=== PATIENT | female | born 1960 | race Caucasian/White ===

== ENCOUNTER 2017-06-22 12:19 | Inpatient (IN) | payer OTHER ==
[2017-06-22 13:52] LABS: BILIRUBIN,URINE NEGATIVE (NEG); COLOR,URINE YELLOW; GLUCOSE,URINE NEGATIVE (NEG); NITRITE,URINE NEGATIVE (NEG); PROTEIN,URINE 30 mg/dL (NEG-TRACE); UROBILINOGEN,URINE 0.2 mg/dL (0.2 mg/dL)
[2017-06-22 13:56] LABS: CLARITY,URINE HAZY
[2017-06-22] MEDS: IV NORMAL SALINE 1000ML BAG 1,000 ML IV ×2 (13:56→15:05)
[2017-06-22] MEDS: ONDANSETRON PF 4 MG/2 ML VIAL. IV (13:59)
[2017-06-22 14:01] LABS: BACTERIA,URINE MANY /HPF (0-FEW); WBC,URINE 20-40 /HPF (0-4)
[2017-06-22] MEDS: fentaNYL PF VIAL 100 MCG/2 ML VIAL IV ×2 (14:01→14:56)
[2017-06-22 14:02] LABS: SQUAMOUS EPITHELIAL CELL,UR MANY /LPF; YEAST,URINE PRESENT /HPF
[2017-06-22 14:04] LABS: BASO % 0 % (0-3); EOS # 1.1 x10^3/uL (0.0-0.7); EOS % 6 % (0-3); HEMATOCRIT 37.4 % (36.0-47.0); HEMOGLOBIN 11.8 g/dL (12.0-15.5); LYMPH # 3.8 x10^3/uL (1.0-4.8); LYMPH % 21 % (24-48); MEAN CORPUSCULAR HEMOGLOBIN 30 pg (25-35); MEAN CORPUSCULAR HGB CONC 32 g/dL (31-37); MEAN CORPUSCULAR VOLUME 94 fL (79-100); MONO # 1.1 x10^3/uL (0.0-1.1); MONO % 6 % (0-9); NEUT # 11.8 x10^3uL (1.8-7.7); NEUT % 66 % (31-73); PLATELET COUNT 880 x10^3/uL (140-400); RED BLOOD COUNT 3.97 x10^6/uL (3.50-5.40); RED CELL DISTRIBUTION WIDTH 16.5 % (11.5-14.5); WHITE BLOOD COUNT 17.8 x10^3/uL (4.0-11.0)
[2017-06-22 14:06] LABS: ADD MAN DIFF? YES
[2017-06-22 14:09] LABS: INR 1.2 (0.8-1.1)
[2017-06-22 14:10] LABS: PARTIAL THROMBOPLASTIN TIME 32 SEC (24-38)
[2017-06-22 14:19] LABS: LACTIC ACID 3.9 mmol/L (0.4-2.0)
[2017-06-22 14:21] LABS: ALBUMIN 2.7 g/dL (3.4-5.0); ALBUMIN/GLOBULIN RATIO 0.5 (1.0-1.7); ALK PHOS 218 U/L (46-116); ALT (SGPT) 32 U/L (14-59); ANION GAP 20 (6-14); AST (SGOT) 29 U/L (15-37); BLOOD UREA NITROGEN 41 mg/dL (7-20); BUN/CREATININE RATIO 14 (6-20); CALCIUM 10.1 mg/dL (8.5-10.1); CARBON DIOXIDE 15 mmol/L (21-32); CHLORIDE 98 mmol/L (98-107); CREATINE KINASE 22 U/L (26-192); CREATININE 2.9 mg/dL (0.6-1.0); GFR 16.8; GLUCOSE 190 mg/dL (70-99); LIPASE 366 U/L (73-393); MAGNESIUM 1.9 mg/dL (1.8-2.4); SODIUM 133 mmol/L (136-145); TOTAL BILIRUBIN 0.3 mg/dL (0.2-1.0); TOTAL PROTEIN 8.4 g/dL (6.4-8.2)
[2017-06-22 14:22] LABS: TROPONINI < 0.017 ng/mL (0.000-0.055)
[2017-06-22 14:22] LABS: % EOS 11 % (0-5); % LYMPHS 23 % (24-48); % METAS 1 % (0-0); % MONOS 5 % (0-10); % MYELOS 1 % (0-0); % SEGS 59 % (35-66)
[2017-06-22 14:23] LABS: PLT ESTIMATE INCREASED (ADEQUATE)
[2017-06-22 14:24] LABS: POLYCHROMASIA SLIGHT
[2017-06-22 14:26] LABS: POTASSIUM 6.1 mmol/L (3.5-5.1)
[2017-06-22 14:26] LABS: NT-PRO BNP 446 pg/mL (0-124)
[2017-06-22 14:28] LABS: THYROID STIM HORMONE (TSH) 7.013 uIU/mL (0.358-3.74)
[2017-06-22] MEDS ORDERED: ONDANSETRON PF 4 MG/2 ML VIAL. IV ×2 (14:30→15:00)
[2017-06-22] MEDS ORDERED: ACETAMINOPHEN 500 MG TABLET PO (14:45)
[2017-06-22] MEDS ORDERED: ACETAMINOPHEN 325 MG TABLET. PO (14:45)
[2017-06-22] MEDS ORDERED: VANCOMYCIN PER PHARMACY MC (14:45)
[2017-06-22] MEDS: PIP/TAZO PER PHARMACY MC (14:45)
[2017-06-22] MEDS ORDERED: 0.9 % SOD CHL for STERILE FIELD 10 ML DISP.SYRIN. (15:00)
[2017-06-22] MEDS ORDERED: TEMAZEPAM 7.5 MG CAPSULE PO (15:00)
[2017-06-22] MEDS ORDERED: ALBUTEROL SULFATE 2.5 MG/3 ML NEBU. NEB (15:15)
[2017-06-22 15:18] LABS: FREE T4 0.71 ng/dL (0.76-1.46)
[2017-06-22] MEDS: ALBUTEROL SULFATE 2.5 MG/3 ML NEBU. NEB (15:23)
[2017-06-22] MEDS: PIPERACILLIN/TAZOBACTAM 3.375 GM in IV NORMAL SALINE 100ML 100 ML IV (15:27)
[2017-06-22] MEDS: NOREPINEPHRIN PREMIX 250 ML IV ×2 (15:38→22:56)
[2017-06-22] MEDS: DEXTROSE 50% 25 GM / 50ML DISP.SYRIN. IV ×2 (15:39→16:00)
[2017-06-22] MEDS: SODIUM POLYSTYRENE SULFONATE 15 GM/60 ML ORAL.SUSP. PO (15:45)
[2017-06-22] MEDS: INSULIN REGULAR 100 UNIT/ML 10ML VIAL. IV ×2 (15:47→16:00)
[2017-06-22] MEDS: CALCIUM GLUCONATE 100 MG/ML VIAL for DOSE IN MG. IV (15:48)
[2017-06-22] MEDS: CALCIUM GLUCONATE 1,000 MG/10 ML VIAL. IVP (16:00)
[2017-06-22] MEDS: HEPARIN PF for SUB-Q USE 5,000 UNIT/0.5 ML VIAL. SQ ×2 (16:00→20:50)
[2017-06-22] MEDS: VANCOMYCIN 1.75 GM in IV DEXTROSE 5 %-0.45 % NACL 500 ML IV (16:04)
[2017-06-22] MEDS: IV RINGERS,LACTATED 1000ML 1,000 ML IV (16:19)
[2017-06-22 16:42] LABS: TROPONINI < 0.017 ng/mL (0.000-0.055)
[2017-06-22 16:43] LABS: LACTIC ACID 2.9 mmol/L (0.4-2.0)
[2017-06-22] MEDS: IPRATRPIUM/ALBUTEROL 0.5/2.5MG 3 ML NEBU. NEB ×2 (17:08→20:06)
[2017-06-22] MEDS: cefTRIAXone IV Push 1 GM VIAL. IVP (18:36)
[2017-06-22] MEDS: BUDESONIDE 0.5 MG/2 ML NEBU. NEB (20:06)
[2017-06-22] MEDS: CHOLESTYRAMINE/ASPARTAME 4 GM PACKET PO (20:47)
[2017-06-22] MEDS: HYDROcodone/APAP 5/325MG 1 TAB TABLET PO (20:47)
[2017-06-22] MEDS: QUEtiapine 100 MG TABLET. PO (20:48)
[2017-06-22] MEDS: DIPHENOXYLATE/ATROPINE TABLET. PO (20:48)
[2017-06-22] MEDS: SUCRALFATE 1 GM TABLET. PO (20:48)
[2017-06-22] MEDS: VENLAFAXINE 50 MG TABLET. PO (20:48)
[2017-06-22 20:59] LABS: POTASSIUM 4.4 mmol/L (3.5-5.1)
[2017-06-22] MEDS ORDERED: clonazePAM 1 MG TABLET PO (21:00)
[2017-06-22 21:05] LABS: TROPONINI < 0.017 ng/mL (0.000-0.055)
[2017-06-22 22:30] LABS: POC GLUCOSE 209 mg/dL (70-99)
[2017-06-23] MEDS: IV NORMAL SALINE 1000ML BAG 1,000 ML IV ×4 (01:00→17:30)
[2017-06-23 05:17] LABS: MRSA BY PCR Negative (Negative)
[2017-06-23] MEDS: HEPARIN PF for SUB-Q USE 5,000 UNIT/0.5 ML VIAL. SQ ×3 (05:58→20:38)
[2017-06-23 06:06] LABS: ADD MAN DIFF? NO
[2017-06-23 06:21] LABS: ANION GAP 12 (6-14); BLOOD UREA NITROGEN 27 mg/dL (7-20); CALCIUM 8.2 mg/dL (8.5-10.1); CARBON DIOXIDE 19 mmol/L (21-32); CHLORIDE 111 mmol/L (98-107); CREATININE 1.9 mg/dL (0.6-1.0); GFR 27.4; GLUCOSE 187 mg/dL (70-99); POTASSIUM 4.4 mmol/L (3.5-5.1); SODIUM 142 mmol/L (136-145)
[2017-06-23 06:28] LABS: BASO # 0.1 x10^3/uL (0.0-0.2); BASO % 1 % (0-3); EOS # 1.7 x10^3/uL (0.0-0.7); EOS % 10 % (0-3); HEMATOCRIT 31.2 % (36.0-47.0); HEMOGLOBIN 9.7 g/dL (12.0-15.5); LYMPH # 3.8 x10^3/uL (1.0-4.8); LYMPH % 23 % (24-48); MEAN CORPUSCULAR HEMOGLOBIN 30 pg (25-35); MEAN CORPUSCULAR HGB CONC 31 g/dL (31-37); MEAN CORPUSCULAR VOLUME 94 fL (79-100); MONO # 1.5 x10^3/uL (0.0-1.1); MONO % 9 % (0-9); NEUT # 9.1 x10^3uL (1.8-7.7); NEUT % 56 % (31-73); PLATELET COUNT 696 x10^3/uL (140-400); RED BLOOD COUNT 3.31 x10^6/uL (3.50-5.40); RED CELL DISTRIBUTION WIDTH 16.7 % (11.5-14.5); WHITE BLOOD COUNT 16.2 x10^3/uL (4.0-11.0)
[2017-06-23] MEDS: SUCRALFATE 1 GM TABLET. PO ×4 (08:05→20:36)
[2017-06-23] MEDS: ASPIRIN ENTERIC COATED 81 MG TABLET.DR. PO (08:05)
[2017-06-23] MEDS: CLOPIDOGREL BISULFATE 75 MG TABLET PO (08:05)
[2017-06-23] MEDS: ATORVASTATIN CALCIUM 40 MG TABLET. PO (08:05)
[2017-06-23] MEDS: VENLAFAXINE 50 MG TABLET. PO ×3 (08:05→20:36)
[2017-06-23] MEDS: PREGABALIN 75 MG CAPSULE PO (08:06)
[2017-06-23] MEDS: HYDROcodone/APAP 5/325MG 1 TAB TABLET PO ×3 (08:06→20:36)
[2017-06-23] MEDS: DIPHENOXYLATE/ATROPINE TABLET. PO ×2 (08:06→20:36)
[2017-06-23] MEDS: BUDESONIDE 0.5 MG/2 ML NEBU. NEB ×2 (08:17→19:49)
[2017-06-23] MEDS: IPRATRPIUM/ALBUTEROL 0.5/2.5MG 3 ML NEBU. NEB ×4 (08:17→19:49)
[2017-06-23] MEDS ORDERED: amLODIPine BESYLATE 10 MG TABLET PO (09:00)
[2017-06-23] MEDS ORDERED: LISINOPRIL 20 MG TABLET PO (09:00)
[2017-06-23] MEDS: CHOLESTYRAMINE/ASPARTAME 4 GM PACKET PO ×3 (09:25→20:35)
[2017-06-23] MEDS: NOREPINEPHRIN PREMIX 250 ML IV (09:38)
[2017-06-23] MEDS: clonazePAM 1 MG TABLET PO ×2 (11:38→18:23)
[2017-06-23 11:49] LABS: POC GLUCOSE 292 mg/dL (70-99)
[2017-06-23] MEDS ORDERED: DEXTROSE 50% 25 GM / 50ML DISP.SYRIN. IV (12:30)
[2017-06-23] MEDS: PIPERACILLIN/TAZOBACTAM 2.25 GM in IV NORMAL SALINE 50ML 50 ML IV ×2 (13:32→17:30)
[2017-06-23] MEDS: CLOTRIMAZOLE/BETAMETH 1%-0.05% TOPICAL CREAM 15GM TUBE. TP (14:00)
[2017-06-23] MEDS: INSULIN ASPART 300 UNITS/3 ML INSULN.PEN SQ (17:31)
[2017-06-23 17:35] LABS: POC GLUCOSE 177 mg/dL (70-99)
[2017-06-23] MEDS: QUEtiapine 100 MG TABLET. PO (20:36)
[2017-06-23] MEDS: LACTOBACILLUS RHAMNOSUS GG 1 CAPSULE. PO (20:37)
[2017-06-23 20:46] LABS: POC GLUCOSE 191 mg/dL (70-99)
[2017-06-24] MEDS: PIPERACILLIN/TAZOBACTAM 2.25 GM in IV NORMAL SALINE 50ML 50 ML IV ×4 (00:35→17:03)
[2017-06-24] MEDS: NOREPINEPHRIN PREMIX 250 ML IV (00:35)
[2017-06-24 04:13] LABS: ADD MAN DIFF? NO
[2017-06-24 04:16] LABS: BASO % 0 % (0-3); EOS # 1.4 x10^3/uL (0.0-0.7); EOS % 14 % (0-3); HEMATOCRIT 26.3 % (36.0-47.0); HEMOGLOBIN 8.6 g/dL (12.0-15.5); LYMPH # 3.5 x10^3/uL (1.0-4.8); LYMPH % 34 % (24-48); MEAN CORPUSCULAR HEMOGLOBIN 31 pg (25-35); MEAN CORPUSCULAR HGB CONC 33 g/dL (31-37); MEAN CORPUSCULAR VOLUME 95 fL (79-100); MONO # 0.7 x10^3/uL (0.0-1.1); MONO % 7 % (0-9); NEUT # 4.5 x10^3uL (1.8-7.7); NEUT % 45 % (31-73); PLATELET COUNT 553 x10^3/uL (140-400); RED BLOOD COUNT 2.77 x10^6/uL (3.50-5.40); RED CELL DISTRIBUTION WIDTH 16.9 % (11.5-14.5); WHITE BLOOD COUNT 10.2 x10^3/uL (4.0-11.0)
[2017-06-24 04:29] LABS: ANION GAP 9 (6-14); BLOOD UREA NITROGEN 16 mg/dL (7-20); CALCIUM 7.7 mg/dL (8.5-10.1); CARBON DIOXIDE 21 mmol/L (21-32); CHLORIDE 115 mmol/L (98-107); CREATININE 1.2 mg/dL (0.6-1.0); GFR 46.6; GLUCOSE 175 mg/dL (70-99); POTASSIUM 4.1 mmol/L (3.5-5.1); SODIUM 145 mmol/L (136-145)
[2017-06-24] MEDS: IV NORMAL SALINE 1000ML BAG 1,000 ML IV ×3 (04:36→19:39)
[2017-06-24] MEDS: HEPARIN PF for SUB-Q USE 5,000 UNIT/0.5 ML VIAL. SQ ×3 (04:37→22:57)
[2017-06-24] MEDS: SUCRALFATE 1 GM TABLET. PO ×4 (07:59→22:04)
[2017-06-24] MEDS: ASPIRIN ENTERIC COATED 81 MG TABLET.DR. PO (08:00)
[2017-06-24] MEDS: IPRATRPIUM/ALBUTEROL 0.5/2.5MG 3 ML NEBU. NEB ×4 (08:00→19:43)
[2017-06-24] MEDS: CLOPIDOGREL BISULFATE 75 MG TABLET PO (08:00)
[2017-06-24] MEDS: PREGABALIN 75 MG CAPSULE PO (08:00)
[2017-06-24] MEDS: LACTOBACILLUS RHAMNOSUS GG 1 CAPSULE. PO ×2 (08:00→22:04)
[2017-06-24] MEDS: VENLAFAXINE 50 MG TABLET. PO ×3 (08:00→22:04)
[2017-06-24] MEDS: ATORVASTATIN CALCIUM 40 MG TABLET. PO (08:00)
[2017-06-24] MEDS: BUDESONIDE 0.5 MG/2 ML NEBU. NEB ×2 (08:00→19:43)
[2017-06-24] MEDS: DIPHENOXYLATE/ATROPINE TABLET. PO ×2 (08:01→22:04)
[2017-06-24] MEDS: HYDROcodone/APAP 5/325MG 1 TAB TABLET PO ×3 (08:04→19:35)
[2017-06-24] MEDS: clonazePAM 1 MG TABLET PO ×3 (08:04→22:20)
[2017-06-24] MEDS: INSULIN ASPART 300 UNITS/3 ML INSULN.PEN SQ ×3 (08:08→17:00)
[2017-06-24] MEDS: CHOLESTYRAMINE/ASPARTAME 4 GM PACKET PO ×3 (10:33→22:04)
[2017-06-24 12:22] LABS: POC GLUCOSE 111 mg/dL (70-99)
[2017-06-24] MEDS: HYDROCORTISONE SOD SUCC/PF 100 MG/2 ML VIAL. IV ×2 (15:53→22:05)
[2017-06-24] MEDS: TPN PER PHARMACY MC (16:30)
[2017-06-24 17:08] LABS: POC GLUCOSE 128 mg/dL (70-99)
[2017-06-24] MEDS: QUEtiapine 100 MG TABLET. PO (22:04)
[2017-06-24] MEDS: DEXTROSE 70% IV (22:05)
[2017-06-24] MEDS: AMINO ACIDS IV (22:05)
[2017-06-24] MEDS: [UNRECOGNIZED DRUG - OTHER] IV (22:05)
[2017-06-24] MEDS: TOTAL PARENTERAL NUTRITION IV (22:05)
[2017-06-25] MEDS: PIPERACILLIN/TAZOBACTAM 2.25 GM in IV NORMAL SALINE 50ML 50 ML IV ×2 (00:13→05:28)
[2017-06-25] MEDS: IV NORMAL SALINE 1000ML BAG 1,000 ML IV ×4 (05:26→21:52)
[2017-06-25] MEDS: HYDROCORTISONE SOD SUCC/PF 100 MG/2 ML VIAL. IV ×3 (05:27→21:55)
[2017-06-25] MEDS: HEPARIN PF for SUB-Q USE 5,000 UNIT/0.5 ML VIAL. SQ ×3 (05:27→22:06)
[2017-06-25 06:08] LABS: ANION GAP 10 (6-14); BLOOD UREA NITROGEN 18 mg/dL (7-20); CALCIUM 7.9 mg/dL (8.5-10.1); CARBON DIOXIDE 20 mmol/L (21-32); CHLORIDE 113 mmol/L (98-107); CREATININE 1.3 mg/dL (0.6-1.0); GFR 42.5; GLUCOSE 220 mg/dL (70-99); MAGNESIUM 1.1 mg/dL (1.8-2.4); PHOSPHORUS 1.7 mg/dL (2.6-4.7); POTASSIUM 4.1 mmol/L (3.5-5.1); SODIUM 143 mmol/L (136-145); TRIGLYCERIDES 144 mg/dL (0-150)
[2017-06-25] MEDS: IPRATRPIUM/ALBUTEROL 0.5/2.5MG 3 ML NEBU. NEB ×4 (08:00→19:47)
[2017-06-25] MEDS: BUDESONIDE 0.5 MG/2 ML NEBU. NEB ×2 (08:00→19:47)
[2017-06-25 08:14] LABS: POC GLUCOSE 222 mg/dL (70-99)
[2017-06-25] MEDS: SUCRALFATE 1 GM TABLET. PO ×4 (08:14→21:53)
[2017-06-25] MEDS: VENLAFAXINE 50 MG TABLET. PO ×3 (08:30→21:53)
[2017-06-25] MEDS: ASPIRIN ENTERIC COATED 81 MG TABLET.DR. PO (08:30)
[2017-06-25] MEDS: PREGABALIN 75 MG CAPSULE PO (08:31)
[2017-06-25] MEDS: CLOPIDOGREL BISULFATE 75 MG TABLET PO (08:31)
[2017-06-25] MEDS: DIPHENOXYLATE/ATROPINE TABLET. PO ×2 (08:31→21:53)
[2017-06-25] MEDS: INSULIN ASPART 300 UNITS/3 ML INSULN.PEN SQ ×3 (08:33→16:46)
[2017-06-25] MEDS: LACTOBACILLUS RHAMNOSUS GG 1 CAPSULE. PO ×2 (08:37→21:53)
[2017-06-25] MEDS: MAGNESIUM SULFATE 4GM 100 ML IV (09:30)
[2017-06-25] MEDS: MAGNESIUM OXIDE 400 MG TABLET PO (09:38)
[2017-06-25] MEDS: POTASSIUM & SODIUM PHOSPHATES PACKET. PO (09:38)
[2017-06-25] MEDS: TPN PER PHARMACY MC ×2 (10:26→11:07)
[2017-06-25] MEDS: CHOLESTYRAMINE/ASPARTAME 4 GM PACKET PO ×3 (11:33→21:55)
[2017-06-25 11:40] LABS: POC GLUCOSE 301 mg/dL (70-99)
[2017-06-25] MEDS: clonazePAM 1 MG TABLET PO ×2 (13:12→21:53)
[2017-06-25 16:29] LABS: POC GLUCOSE 204 mg/dL (70-99)
[2017-06-25 20:59] LABS: POC GLUCOSE 295 mg/dL (70-99)
[2017-06-25] MEDS: QUEtiapine 100 MG TABLET. PO (21:53)
[2017-06-25] MEDS: HYDROcodone/APAP 5/325MG 1 TAB TABLET PO (21:53)
[2017-06-25] MEDS: ATORVASTATIN CALCIUM 40 MG TABLET. PO (21:53)
[2017-06-25] MEDS: TOTAL PARENTERAL NUTRITION IV (21:57)
[2017-06-25] MEDS: [UNRECOGNIZED DRUG - OTHER] IV (21:57)
[2017-06-25] MEDS: DEXTROSE 70% IV (21:57)
[2017-06-25] MEDS: AMINO ACIDS IV (21:57)
[2017-06-25] MEDS ORDERED: AMINO ACIDS IV ×3 (22:00)
[2017-06-25] MEDS ORDERED: [UNRECOGNIZED DRUG - OTHER] IV (22:00)
[2017-06-25] MEDS ORDERED: TOTAL PARENTERAL NUTRITION IV ×3 (22:00)
[2017-06-25] MEDS ORDERED: DEXTROSE 70% IV ×3 (22:00)
[2017-06-25] MEDS ORDERED: [UNRECOGNIZED DRUG - OTHER] IV (22:00)
[2017-06-25] MEDS ORDERED: [UNRECOGNIZED DRUG - OTHER] IV (22:00)
[2017-06-26] MEDS: HYDROCORTISONE SOD SUCC/PF 100 MG/2 ML VIAL. IV ×2 (05:57→15:21)
[2017-06-26] MEDS: IV NORMAL SALINE 1000ML BAG 1,000 ML IV (05:57)
[2017-06-26] MEDS: SUCRALFATE 1 GM TABLET. PO ×3 (06:07→17:30)
[2017-06-26] MEDS: HYDROcodone/APAP 5/325MG 1 TAB TABLET PO ×2 (06:08→17:30)
[2017-06-26] MEDS: clonazePAM 1 MG TABLET PO ×2 (06:10→15:20)
[2017-06-26 06:15] LABS: ANION GAP 9 (6-14); BLOOD UREA NITROGEN 15 mg/dL (7-20); CALCIUM 7.7 mg/dL (8.5-10.1); CARBON DIOXIDE 23 mmol/L (21-32); CHLORIDE 112 mmol/L (98-107); CREATININE 0.9 mg/dL (0.6-1.0); GLUCOSE 206 mg/dL (70-99); MAGNESIUM 2.1 mg/dL (1.8-2.4); PHOSPHORUS 2.6 mg/dL (2.6-4.7); POTASSIUM 4.1 mmol/L (3.5-5.1); SODIUM 144 mmol/L (136-145)
[2017-06-26] MEDS: HEPARIN PF for SUB-Q USE 5,000 UNIT/0.5 ML VIAL. SQ ×2 (06:15→15:31)
[2017-06-26 07:23] LABS: POC GLUCOSE 184 mg/dL (70-99)
[2017-06-26] MEDS: IPRATRPIUM/ALBUTEROL 0.5/2.5MG 3 ML NEBU. NEB ×3 (08:05→15:52)
[2017-06-26] MEDS: BUDESONIDE 0.5 MG/2 ML NEBU. NEB (08:05)
[2017-06-26] MEDS: CHOLESTYRAMINE/ASPARTAME 4 GM PACKET PO ×2 (08:59→15:20)
[2017-06-26] MEDS: ASPIRIN ENTERIC COATED 81 MG TABLET.DR. PO (08:59)
[2017-06-26] MEDS: MAGNESIUM OXIDE 400 MG TABLET PO (08:59)
[2017-06-26] MEDS: LACTOBACILLUS RHAMNOSUS GG 1 CAPSULE. PO (09:00)
[2017-06-26] MEDS: DIPHENOXYLATE/ATROPINE TABLET. PO (09:00)
[2017-06-26] MEDS: CLOPIDOGREL BISULFATE 75 MG TABLET PO (09:00)
[2017-06-26] MEDS: PREGABALIN 75 MG CAPSULE PO (09:00)
[2017-06-26] MEDS: VENLAFAXINE 50 MG TABLET. PO ×2 (09:00→15:20)
[2017-06-26] MEDS: INSULIN ASPART 300 UNITS/3 ML INSULN.PEN SQ ×3 (09:08→17:33)
[2017-06-26 10:12] LABS: ADD MAN DIFF? NO
[2017-06-26 10:22] LABS: BASO # 0.2 x10^3/uL (0.0-0.2); BASO % 1 % (0-3); EOS % 0 % (0-3); HEMATOCRIT 25.9 % (36.0-47.0); HEMOGLOBIN 8.2 g/dL (12.0-15.5); LYMPH # 3.5 x10^3/uL (1.0-4.8); LYMPH % 24 % (24-48); MEAN CORPUSCULAR HEMOGLOBIN 31 pg (25-35); MEAN CORPUSCULAR HGB CONC 32 g/dL (31-37); MEAN CORPUSCULAR VOLUME 96 fL (79-100); MONO # 0.7 x10^3/uL (0.0-1.1); MONO % 5 % (0-9); NEUT # 10.1 x10^3uL (1.8-7.7); NEUT % 70 % (31-73); PLATELET COUNT 539 x10^3/uL (140-400); RED BLOOD COUNT 2.69 x10^6/uL (3.50-5.40); RED CELL DISTRIBUTION WIDTH 17.6 % (11.5-14.5); WHITE BLOOD COUNT 14.4 x10^3/uL (4.0-11.0)
[2017-06-26 11:07] LABS: POC GLUCOSE 209 mg/dL (70-99)
[2017-06-26] MEDS: POTASSIUM & SODIUM PHOSPHATES PACKET. PO (12:49)
[2017-06-26 16:46] LABS: POC GLUCOSE 157 mg/dL (70-99)
== END 2017-06-26 18:30 | disposition home health service (06) | DRG 871 ==
LOC: ER 12:19 → 1 WEST ICU 15:09 → 5 SOUTH 06-25 16:43
DX: A41.9 Sepsis, unspecified organism (principal); R65.21 Severe sepsis with septic shock; R57.1 Hypovolemic shock; E87.2 Acidosis; J90 Pleural effusion, not elsewhere classified; N17.9 Acute kidney failure, unspecified; E87.1 Hypo-osmolality and hyponatremia; K94.13 Enterostomy malfunction; E87.5 Hyperkalemia; N39.0 Urinary tract infection, site not specified; I69.351 Hemiplegia and hemiparesis following cerebral infarction affecting right dominant side; E11.9 Type 2 diabetes mellitus without complications; D50.9 Iron deficiency anemia, unspecified; I10 Essential (primary) hypertension; J44.9 Chronic obstructive pulmonary disease, unspecified; I95.1 Orthostatic hypotension; K21.9 Gastro-esophageal reflux disease without esophagitis; B19.20 Unspecified viral hepatitis C without hepatic coma; F17.210 Nicotine dependence, cigarettes, uncomplicated; K57.10 Diverticulosis of small intestine without perforation or abscess without bleeding; K52.3 Indeterminate colitis; F31.9 Bipolar disorder, unspecified; F41.9 Anxiety disorder, unspecified; M19.90 Unspecified osteoarthritis, unspecified site; S01.81XA Laceration without foreign body of other part of head, initial encounter; W18.30XA Fall on same level, unspecified, initial encounter; Y83.8 Other surgical procedures as the cause of abnormal reaction of the patient, or of later complication, without mention of misadventure at the time of the procedure; Z79.82 Long term (current) use of aspirin; Y92.129 Unspecified place in nursing home as the place of occurrence of the external cause; Y93.89 Activity, other specified; Y99.8 Other external cause status; Z90.49 Acquired absence of other specified parts of digestive tract
CPT/HCPCS: 36415; 36556; 36569; 70450; 71045; 72125; 74176; 80048; 80053; 81001; 82533; 82550; 82962; 83605; 83690; 83735; 83880; 84100; 84132; 84439; 84443; 84478; 84481; 84484; 85007; 85025; 85610; 85730; 86850; 86900; 86901; 87040; 87086; 87641; 93005; 94640; 94760; 96361; 96365; 96368; 96375; 96376; 97116-GP; 97162-GP; 97166-GO; 97535-GO; 99291-25; J0610; J0696; J1720; J1815; J2405; J2543; J3010; J3370; J3475; J7030; J7042; J7120; J7613; J7620; J7626